=== PATIENT | female | born 1935 | race African-American/Black ===

== ENCOUNTER 2017-02-23 00:48 | Emergency (ER) | payer MEDICARE, OTHER ==
[~2017-02-23] VITALS: Ht 167.6 cm; Wt 73.0 kg
[2017-02-23] MEDS ORDERED: KETOROLAC 30MG/ML VIAL IM ONE (02:00)
[2017-02-23 02:03] VITALS: BP 140/80
== END 2017-02-23 02:55 | disposition home or self-care (01) ==
LOC: ER 01:06
DX: I10 Essential (primary) hypertension (principal); M19.90 Unspecified osteoarthritis, unspecified site; M54.30 Sciatica, unspecified side; I50.9 Heart failure, unspecified
CPT/HCPCS: 96372; 99283; J1885